=== PATIENT | male | born 1955 | race Caucasian/White ===

== ENCOUNTER 2016-07-15 23:35 | Emergency (ER) | payer MEDICAID ==
[~2016-07-15] VITALS: Ht 180.3 cm; Wt 85.0 kg
[2016-07-16 00:19] LABS: ASPARTATE AMINO TRANSFERASE 41 U/L (15-37); BLOOD UREA NITROGEN 8 mg/dL (7-18)
[2016-07-16 02:10] VITALS: BP 139/89
== END 2016-07-16 08:06 | disposition home or self-care (01) ==
LOC: ED 23:35
DX: F10.220 Alcohol dependence with intoxication, uncomplicated (principal)
CPT/HCPCS: 36415; 80053; 80307; 85025; 99284

== ENCOUNTER 2018-08-25 01:31 | Inpatient (IN) | payer MEDICAID ==
[~2018-08-25] VITALS: Ht 182.9 cm; Wt 62.4 kg
[~2018-08-25 01:31] MED LIST: ASPI-515 PO; OLAN5TAB9 PO
--- NOTE | 2018-08-25 02:36 | NUR ---
FIRST CONTACT WITH PT. PT C/O ABDOMINAL PAIN WITH N/V X TODAY. PT'S AOX4. RESP SEVEN AND UNLABORED. BP/SPO2 MONITORS IN PLACE. CALL LIGHT WITHIN REACH. PA AT BEDSIDE TO EVALUATE AT THIS TIME.
[2018-08-25] MEDS ORDERED: ONDANSETRON 2MG/ML, 2ML ONE ×2 (02:38→05:34)
[2018-08-25] MEDS ORDERED: MORPHINE SULFATE 4 MG/ML, 1ML ONE (02:38)
[2018-08-25 02:52] LABS: MEAN CORPUSCULAR HEMOGLOBIN 33.9 pg (27.5-34.5); MEAN CORPUSCULAR VOLUME 102.8 fL (81-97); MEAN PLATELET VOLUME 7.6 fL (7.4-10.4); PLATELET COUNT 210 x10^3/uL (130-400); RED CELL DISTRIBUTION WIDTH 13.7 % (9.4-14.8)
[2018-08-25] MEDS ORDERED: ONDANSETRON 2MG/ML, 2ML IVPush ONE (03:00)
[2018-08-25] MEDS ORDERED: MORPHINE SULFATE 4 MG/ML, 1ML IVPush PRN (03:00)
--- NOTE | 2018-08-25 03:02 | NUR ---
PT MEDICATED PER EMAR. PT TOLERATED WELL.
[2018-08-25 03:04] LABS: ALANINE AMINOTRANSFERASE 29 U/L (12-78); ALBUMIN 3.7 g/dL (3.4-5.0); ANION GAP 8 mmol/L (5-15); CHLORIDE 108 mmol/L (98-107); CREATININE 0.99 mg/dL (0.7-1.3)
--- NOTE | 2018-08-25 03:05 | NUR ---
URINAL AT BEDSIDE.
[2018-08-25 03:07] LABS: ALKALINE PHOSPHATASE 70 U/L (45-117); BILIRUBIN,TOTAL 0.5 mg/dL (0.2-1.0)
[2018-08-25] MEDS ORDERED: OMNIPAQUE 350 MG/ML, 100ML BOTTLE ONE (03:26)
--- NOTE | 2018-08-25 03:32 | NUR ---
pt is not able to provide urine sample at this time. pa notified.
[2018-08-25 03:48] LABS: BASOPHILS # (AUTO) 0.03 x10^3/uL (0-0.1); BASOPHILS % (AUTO) 0 % (0-1); EOSINOPHILS % (AUTO) 0 % (1-7); LYMPHOCYTES # (AUTO) 0.34 x10^3/uL (1-3.4); LYMPHOCYTES % (AUTO) 3 % (22-44); MD SCAN; MONOCYTES # (AUTO) 0.03 x10^3/uL (0.2-0.8); MONOCYTES % (AUTO) 0 % (2-9); NEUTROPHILS # (AUTO) 10.57 x10^3/uL (1.8-6.8); NEUTROPHILS % (AUTO) 96 % (42-75)
[2018-08-25] MEDS ORDERED: KETOROLAC 30 MG/1 ML ONE (04:20)
[2018-08-25] MEDS ORDERED: TAMSULOSIN 0.4 MG CAP.ER.24H ONE (04:20)
[2018-08-25 04:22] LABS: MICROSCOPIC AUTO
[2018-08-25 04:23] LABS: CULTURE INDICATED? YES
--- NOTE | 2018-08-25 04:26 | NUR ---
PT MEDICATED PER EMAR. PT TOLERATED WELL.
[2018-08-25] MEDS ORDERED: CEFTRIAXONE PMX 1GM/50ML 50 ML ONE (04:28)
[2018-08-25] MEDS: SODIUM CHLORIDE 0.9% 1,000 ML IV SCH ×2 (04:29→18:00)
[2018-08-25] MEDS ORDERED: ONDANSETRON 2MG/ML, 2ML IVPush PRN (04:30)
[2018-08-25] MEDS ORDERED: KETOROLAC 30 MG/1 ML IVPush ONE (04:30)
[2018-08-25] MEDS ORDERED: morphine SULFATE 10 MG/ML, 1ML IVPush PRN (04:30)
[2018-08-25] MEDS ORDERED: CEFTRIAXONE PMX 1GM/50ML 50 ML IVPB ONE (04:30)
[2018-08-25] MEDS ORDERED: TAMSULOSIN 0.4 MG CAP.ER.24H PO ONE (04:30)
[2018-08-25 04:35] LABS: AMPHETAMINE SCREEN, URINE Negative (Negative); BARBITURATE SCREEN, URINE Negative (Negative); BENZODIAZEPINE SCREEN, URINE Negative (Negative); CANNABINOID SCREEN, URINE Positive (Negative); COCAINE SCREEN, URINE Negative (Negative); METHADONE SCREEN, URINE Negative (Negative); OPIATE SCREEN, URINE Positive (Negative)
--- NOTE | 2018-08-25 04:44 | NUR ---
ABX AND NS INFUSING AT THIS TIME. PT TOLERATED WELL.
--- NOTE | 2018-08-25 04:53 | NUR ---
REPORT GIVEN TO HERNAN KING. ALL QUESTIONS ANSWERED.
--- NOTE | 2018-08-25 04:55 | NUR ---
REPORT GIVEN TO TEACHING AIDE.
[2018-08-25] MEDS ORDERED: FENTANYL PF 100 MCG/2ML ONE ×2 (05:27→06:12)
[2018-08-25] MEDS ORDERED: MIDAZOLAM 1 MG/ML, 2ML ONE (05:27)
[2018-08-25] MEDS ORDERED: PROPOFOL 10 MG/ML, 20ML ONE (05:34)
[2018-08-25] MEDS ORDERED: DEXAMETHASONE 4 MG/ML, 5ML ONE (05:34)
[2018-08-25] MEDS ORDERED: METOPROLOL 1 MG/ML, 5ML ONE (05:34)
[2018-08-25] MEDS ORDERED: PROMETHAZINE 25 MG/ML, 1ML IV PRN (06:00)
[2018-08-25] MEDS ORDERED: DIAZEPAM 5 MG/ML, 2ML IVPush PRN (06:00)
[2018-08-25] MEDS ORDERED: MEPERIDINE/PF 25MG/0.5ML IVPush PRN (06:00)
[2018-08-25] MEDS ORDERED: KETOROLAC 30 MG/1 ML IV PRN (06:00)
[2018-08-25] MEDS ORDERED: hydrALAzine 20 MG/ML, 1ML IV PRN (06:00)
[2018-08-25] MEDS ORDERED: FENTANYL PF 100 MCG/2ML IV PRN (06:00)
[2018-08-25] MEDS ORDERED: ACETAMINOPHEN 325 MG TABLET PO PRN (06:00)
[2018-08-25] MEDS ORDERED: ALBUTEROL SULFATE 2.5 MG/3 ML NPPB PRN (06:00)
[2018-08-25] MEDS ORDERED: LABETALOL 5MG/ML, 20ML IV PRN (06:00)
[2018-08-25] MEDS ORDERED: HYDROmorphone 2 MG/ML, 1ML IVPush PRN (06:00)
[2018-08-25] MEDS ORDERED: OXYcodone 5 MG/5 ML ORAL.SOL UDC PO PRN (06:00)
[2018-08-25] MEDS ORDERED: MEPERIDINE/PF 25MG/ML,1ML ONE (07:06)
[2018-08-25] MEDS ORDERED: ACETAMINOPHEN 650 MG/20.3 ML UDC ONE (07:55)
[2018-08-25] MEDS ORDERED: OMNIPAQUE 350 MG/ML, 50 ML BOTTLE ONE (10:37)
[2018-08-25] MEDS ORDERED: SODIUM CHLORIDE 0.9%, 500ML IVBOLUS ONE (11:30)
[2018-08-25 13:45] VITALS: BP 83/57
[2018-08-25 19:05] VITALS: BP 104/69
[2018-08-26] MEDS: HYDROcodone/APAP 5/325 TABLET PO PRN ×3 (00:07→17:45)
[2018-08-26] MEDS: SODIUM CHLORIDE 0.9% 1,000 ML IV SCH ×3 (01:15→21:00)
[2018-08-26 01:19] VITALS: BP 92/57
[2018-08-26 05:27] LABS: MEAN CORPUSCULAR HEMOGLOBIN 34.4 pg (27.5-34.5); MEAN CORPUSCULAR HGB CONC 33.3 g/dL (33.2-36.2); MEAN CORPUSCULAR VOLUME 103.4 fL (81-97); MEAN PLATELET VOLUME 7.8 fL (7.4-10.4); PLATELET COUNT 127 x10^3/uL (130-400); RED BLOOD COUNT 3.11 x10^6/uL (4.38-5.82); RED CELL DISTRIBUTION WIDTH 13.6 % (9.4-14.8)
[2018-08-26 05:38] LABS: ANION GAP 7 mmol/L (5-15); CALCIUM 7.5 mg/dL (8.5-10.1); CHLORIDE 105 mmol/L (98-107); CREATININE 0.95 mg/dL (0.7-1.3)
[2018-08-26] MEDS: CEFTRIAXONE PMX 1GM/50ML 50 ML IV SCH (05:44)
[2018-08-26 06:49] LABS: MD YES
[2018-08-26 06:52] LABS: BAND#(MANUAL) 2.88 x10^3/uL; BANDS%(MANUAL) 18 % (0-7); LYMPH#(MANUAL) 0.96 x10^3/uL (1-3.4); LYMPHS% (MANUAL) 6 % (22-44); MONOS#(MANUAL) 0.16 x10^3/uL (0.3-2.7); MONOS% (MANUAL) 1 % (2-9); REACTIVE LYMPHS # (MANUAL) 0.16 x10^3/uL (0-0); REACTIVE LYMPHS % (MANUAL) 1 % (0-0); SEG#(MANUAL) 11.84 x10^3/uL (1.8-6.8); SEGS% (MANUAL) 74 % (42-75)
[2018-08-26 06:53] LABS: <PLATELET ESTIMATE> DECREASED; POLYCHROMASIA 1+
[2018-08-26 06:54] LABS: <PLT MORPHOLOGY> NORMAL PLT MORPH
[2018-08-26 08:32] VITALS: BP 109/69
[2018-08-26 12:35] VITALS: BP 117/70
[2018-08-26 19:00] VITALS: BP 110/67
[2018-08-26 19:12] LABS: ANION GAP 9 mmol/L (5-15); CALCIUM 7.9 mg/dL (8.5-10.1); CHLORIDE 104 mmol/L (98-107); CREATININE 0.89 mg/dL (0.7-1.3)
[2018-08-27 00:50] VITALS: BP 137/85
[2018-08-27] MEDS: HYDROcodone/APAP 5/325 TABLET PO PRN ×4 (02:32→20:02)
[2018-08-27 04:39] LABS: MEAN CORPUSCULAR HEMOGLOBIN 34.1 pg (27.5-34.5); MEAN CORPUSCULAR HGB CONC 33.3 g/dL (33.2-36.2); MEAN CORPUSCULAR VOLUME 102.2 fL (81-97); MEAN PLATELET VOLUME 8.3 fL (7.4-10.4); PLATELET COUNT 142 x10^3/uL (130-400); RED CELL DISTRIBUTION WIDTH 13.2 % (9.4-14.8)
[2018-08-27 04:54] LABS: MD YES
[2018-08-27 04:56] LABS: ANISOCYTOSIS 1+; BAND#(MANUAL) 1.19 x10^3/uL; BANDS%(MANUAL) 8 % (0-7); LYMPH#(MANUAL) 0.75 x10^3/uL (1-3.4); LYMPHS% (MANUAL) 5 % (22-44); MONOS#(MANUAL) 1.04 x10^3/uL (0.3-2.7); MONOS% (MANUAL) 7 % (2-9); SEG#(MANUAL) 11.92 x10^3/uL (1.8-6.8); SEGS% (MANUAL) 80 % (42-75)
[2018-08-27 04:57] LABS: <PLATELET ESTIMATE> DECREASED; <PLT MORPHOLOGY> NORMAL PLT MORPH
[2018-08-27] MEDS: CEFTRIAXONE PMX 1GM/50ML 50 ML IV SCH (05:00)
[2018-08-27] MEDS: SODIUM CHLORIDE 0.9% 1,000 ML IV SCH ×2 (05:05→16:59)
[2018-08-27 07:48] VITALS: BP 126/69
[2018-08-27 13:19] VITALS: BP 132/79
[2018-08-27 21:09] VITALS: BP 120/72
[2018-08-28] MEDS: SODIUM CHLORIDE 0.9% 1,000 ML IV SCH ×2 (02:29→12:59)
[2018-08-28 04:15] VITALS: BP 134/81
[2018-08-28] MEDS: CEFTRIAXONE PMX 1GM/50ML 50 ML IV SCH (04:26)
[2018-08-28] MEDS: HYDROcodone/APAP 5/325 TABLET PO PRN (04:26)
[2018-08-28 05:24] LABS: MEAN CORPUSCULAR HEMOGLOBIN 34.1 pg (27.5-34.5); MEAN CORPUSCULAR HGB CONC 33.2 g/dL (33.2-36.2); MEAN CORPUSCULAR VOLUME 102.6 fL (81-97); MEAN PLATELET VOLUME 8.6 fL (7.4-10.4); PLATELET COUNT 156 x10^3/uL (130-400); RED BLOOD COUNT 3.17 x10^6/uL (4.38-5.82); RED CELL DISTRIBUTION WIDTH 13.1 % (9.4-14.8)
[2018-08-28 05:34] LABS: ANION GAP 8 mmol/L (5-15); CALCIUM 8.3 mg/dL (8.5-10.1); CHLORIDE 101 mmol/L (98-107); CREATININE 0.62 mg/dL (0.7-1.3)
[2018-08-28 05:50] LABS: MD YES
[2018-08-28 05:52] LABS: <PLATELET ESTIMATE> ADEQUATE; <PLT MORPHOLOGY> NORMAL PLT MORPH; ANISOCYTOSIS 1+; BAND#(MANUAL) 0.76 x10^3/uL; BANDS%(MANUAL) 6 % (0-7); LYMPH#(MANUAL) 1.02 x10^3/uL (1-3.4); LYMPHS% (MANUAL) 8 % (22-44); MONOS#(MANUAL) 0.25 x10^3/uL (0.3-2.7); MONOS% (MANUAL) 2 % (2-9); SEG#(MANUAL) 10.67 x10^3/uL (1.8-6.8); SEGS% (MANUAL) 84 % (42-75)
[2018-08-28 07:00] VITALS: BP 111/69
[2018-08-28] MEDS ORDERED: AMOX1TAB64 PO (12:47)
[2018-08-28] MEDS ORDERED: ACET500T71 PO (12:49)
== END 2018-08-28 13:55 | disposition home or self-care (01) | DRG 660 ==
LOC: ED 04:42 → EDIP 04:45 → 4NOR 08:10 → DCLOUNGE 08-28 13:50
PROVIDERS: ADMIT Internal Medicine; ATTEND Internal Medicine
PROC: 0TC68ZZ Extirpation of Matter from Right Ureter, Via Natural or Artificial Opening Endoscopic (ICD-10-PCS; 2018-08-25)
PROC: 0T768DZ Dilation of Right Ureter with Intraluminal Device, Via Natural or Artificial Opening Endoscopic (ICD-10-PCS; principal; 2018-08-25 05:00)
DX: N13.6 Pyonephrosis (principal); N13.8 Other obstructive and reflux uropathy; F17.210 Nicotine dependence, cigarettes, uncomplicated; N28.1 Cyst of kidney, acquired; I95.9 Hypotension, unspecified; B96.20 Unspecified Escherichia coli [E. coli] as the cause of diseases classified elsewhere; F10.129 Alcohol abuse with intoxication, unspecified
CPT/HCPCS: 36415; 74177; 74420; 80048; 80053; 80307; 81001; 83690; 85025; 87040; 87077; 87086; 87186; 96374; 96375; 99285; G0378; J0696; J1100; J1885; J2175; J2250; J2405; J2704; J3010; Q9967; C1758; C1769; C2617; J2270; J7030; J7040

== ENCOUNTER 2019-02-10 08:02 | Emergency (ER) | payer MEDICAID ==
[~2019-02-10] VITALS: Ht 182.9 cm; Wt 63.5 kg
[~2019-02-10 08:02] MED LIST changes: +ACET500T64 PO; +AMOX1TAB64 PO
[2019-02-10 08:06] VITALS: BP 137/86
== END 2019-02-10 09:18 | disposition home or self-care (01) ==
LOC: ED 09:00
DX: S01.111D Laceration without foreign body of right eyelid and periocular area, subsequent encounter (principal); X58.XXXD Exposure to other specified factors, subsequent encounter
CPT/HCPCS: 99281

== ENCOUNTER 2019-06-12 08:55 | Emergency (ER) | payer MEDICAID ==
[~2019-06-12] VITALS: Ht 185.4 cm; Wt 63.6 kg
[2019-06-12 09:01] VITALS: BP 136/90
--- NOTE | 2019-06-12 09:12 | NUR ---
TASK RN, FIRST CONTACT WITH PT. PA at bedside. Pt sitting on gurney. No acute distress noticed. Pt states, "It feels like two stiches are left in my skin from when I had them removed in December." No needs expressed, call light within reach.
--- NOTE | 2019-06-12 09:23 | NUR ---
TASK RN: Patient given discharge instructions and they have confirmed that they understand the instructions. Patient ambulatory with steady gait. Pt left with d/c paperwork and all personal belongings.
== END 2019-06-12 09:26 | disposition home or self-care (01) ==
LOC: ED 09:15
DX: S01.81XD Laceration without foreign body of other part of head, subsequent encounter (principal); Z48.02 Encounter for removal of sutures; X58.XXXD Exposure to other specified factors, subsequent encounter
CPT/HCPCS: 99281